=== PATIENT | male | born 1950 ===

== ENCOUNTER 2024-06-19 06:07 | Day surgery (SDC) | payer OTHER, SELFPAY ==
[2024-05-27 11:13] VITALS: BMI 29.1
[2024-05-27 11:32] LABS: Hematocrit 43.5 % (39.0-52.0); Hemoglobin 14.8 g/dL (13.0-18.0); Mean Corpuscular Hgb 32.2 pg (27.0-31.0); Mean Corpuscular Volume 94.8 fL (80.0-94.0); Mean Platelet Volume 10.8 fL (7.4-10.4); Platelet Count 163 10^3/uL (130-400); Red Blood Cell Count 4.59 10^6/uL (4.70-6.10); Red Cell Dist. Width 12.1 % (11.5-14.5); White Blood Cell Count 5.9 10^3/uL (4.8-10.8)
[2024-05-27 11:52] LABS: ALT (SGPT) 26 U/L (0-50); AST (SGOT) 30 U/L (17-59); Albumin 4.2 g/dl (3.5-5.0); Alkaline Phosphatase 58 U/L (38-126); Blood Urea Nitrogen 21 mg/dl (9-20); Calcium 9.8 mg/dl (8.4-10.2); Carbon Dioxide 26 mmol/L (22-30); Chloride 105 mmol/L (98-107); Estimated Creatinine Clearance 52 ml/min; Glucose 95 mg/dl (70-99); Potassium 5.2 mmol/L (3.5-5.1); Sodium 143 mmol/L (135-145); Total Protein 6.8 g/dl (6.3-8.2); eGFR > 60.00
[2024-05-27 12:55] LABS: Glycohemoglobin (HgbA1c) 5.1 % (4.0-5.6)
--- NOTE | 2024-06-05 09:32 | VNURNOTE ---
Patient is scheduled for an elective R TKA on 06/19/24- he is a same day patient with Dr Pitts. Spoke with patient prior to surgery. Introduced role of [facility] Liaison. Patient reports that he lives with his in a MULTI story home.
There is 1 small step to enter and a flight of steps to the second floor.
No bathroom on first floor. He currently functions independently. He has a cane and rolling walker.
PCP is Dr Jose Mcfadden.
Discussed [facility] joint protocol and post surgical plans.
Reviewed that he will have [facility] services initially and will then start outpatient PT.
Patient selects [facility] for his home care needs and will go to [facility] for outpatient PT. [facility] appt TBD. Patient will call in the next day or two to schedule.
Patient is in agreement with plan and states that his will be home with him. Advised to bring RW with him day of surgery. Referral placed in [facility].
Plan: [facility] per [facility] joint protocol then outpt PT TBD
[2024-06-14 08:40] VITALS: BMI 29.1
[2024-06-19] VITALS (18 sets, daily range): BP systolic 85–160; BP diastolic 48–97; PULSE 55; O2SAT 98
[2024-06-19] MEDS: CELEBREX 200 MG PO (06:18)
[2024-06-19] MEDS: TYLENOL 650 MG PO (06:18)
--- NOTE | 2024-06-19 06:44 | W.DS.TRANS ---
DC Summary - Boardmarker
-
Discharge Instructions:
Discharge Diagnosis/Procedures R TKA 06/19/24
Diet As tolerated
Activity With Walker
Driving Restrictions No driving
Bathing Restrictions OK to Shower
Instructions:
Stand-Alone Forms: [facility] Total Hip and Knee D/C
Changes to Home Medications: Yes
Discharge Medications:
DC Medications w/original date entered in [employer]
atorvastatin 20 mg tablet (Lipitor) 20 mg PO DAILY 06/14/24
dofetilide 500 mcg capsule (Tikosyn) 500 mcg PO Q12H 06/14/24
famotidine 20 mg tablet (Pepcid) 20 mg PO HS 06/14/24
losartan 50 mg tablet 50 mg PO DAILY 06/14/24
multivitamin 1 tab PO DAILY 06/14/24
mupirocin 2 % topical ointment 1 applic topical BID 06/14/24
acetaminophen 325 mg tablet (Tylenol) 650 mg (2 x 325 mg) PO QID #1 tab 06/19/24
apixaban 5 mg tablet (Eliquis) 2.5 mg (1/2 x 5 mg) PO Q12H Blood clot prevention/tx/afib #6 tabs 06/19/24
dexamethasone 4 mg tablet 4 mg PO BID inflammation #6 tabs 06/19/24
docusate sodium 100 mg capsule (Colace) 100 mg PO BID stool softner #1 cap 06/19/24
magnesium hydroxide 400 mg/5 mL oral suspension (Milk of Magnesia) 30 ml PO HS PRN Constipation #1 mL 06/19/24
ondansetron 4 mg disintegrating tablet 4 mg PO Q6H PRN n/v #20 tabs 06/19/24
oxycodone 5 mg tablet 5 mg PO Q6H PRN 1 tab moderate pain, 2 tabs severe pain #30 tabs 06/19/24
sennosides 8.6 mg tablet (Senokot) 17.2 mg (2 x 8.6 mg) PO BID laxative #2 tabs 06/19/24
Home Medication Changes
acetaminophen 325 mg tablet (Tylenol) 650 mg (2 x 325 mg) PO QID #1 tab 06/19/24
apixaban 5 mg tablet (Eliquis) 2.5 mg (1/2 x 5 mg) PO Q12H Blood clot prevention/tx/afib #6 tabs 06/19/24
dexamethasone 4 mg tablet 4 mg PO BID inflammation #6 tabs 06/19/24
docusate sodium 100 mg capsule (Colace) 100 mg PO BID stool softner #1 cap 06/19/24
magnesium hydroxide 400 mg/5 mL oral suspension (Milk of Magnesia) 30 ml PO HS PRN Constipation #1 mL 06/19/24
ondansetron 4 mg disintegrating tablet 4 mg PO Q6H PRN n/v #20 tabs 06/19/24
oxycodone 5 mg tablet 5 mg PO Q6H PRN 1 tab moderate pain, 2 tabs severe pain #30 tabs 06/19/24
sennosides 8.6 mg tablet (Senokot) 17.2 mg (2 x 8.6 mg) PO BID laxative #2 tabs 06/19/24
Pending Results: No
[2024-06-19] MEDS: ANCEF 5 IV (11:00)
== END 2024-06-19 11:52 | disposition home or self-care (01) ==
LOC: SDS 06:07
PROVIDERS: ATTENDING PHYSICIAN Orthopaedic Surgery; FAMILY PHYSICIAN Internal Medicine; OTHER PHYSICIAN Internal Medicine Cardiovascular Disease
DX: M17.11 Unilateral primary osteoarthritis, right knee (principal)
CPT/HCPCS: 27447; 36415; 73560; 80053; 83036; 85027; 87070; 97162; C1713; C1776